=== PATIENT | male | born 1975 | race Caucasian/White ===

== ENCOUNTER 2020-11-23 18:34 | Outpatient (CLI) | payer OTHER | END 2020-11-23 18:35 | disposition home or self-care (01) | LOC: COV 18:34 | PROVIDERS: ATTEND Family Medicine | DX: Z20.828 Contact with and (suspected) exposure to other viral communicable diseases (principal) ==

== ENCOUNTER 2020-11-27 09:20 | Outpatient (CLI) | payer OTHER | END 2020-11-27 23:59 | disposition home or self-care (01) | LOC: LAB.WCP 09:20 | PROVIDERS: ATTEND Family Medicine | DX: Z20.828 Contact with and (suspected) exposure to other viral communicable diseases (principal) ==